=== PATIENT | male | born 1940 | race Caucasian/White ===

== ENCOUNTER 2017-03-09 12:48 | Emergency (ER) | payer BC ==
[2017-03-09] MEDS ORDERED: Lidocaine 1% w/Epinephrine 1:200K 30 ML VIAL ONE (14:29)
--- NOTE | 2017-03-09 15:43 | RAD ---
RADIOGRAPH LEFT LEG TIBIA AND FIBULA 2 VIEWS: Date: 03/09/17 HISTORY: 77-year-old male with painful, growing mass in left leg. COMPARISON: None. FINDINGS: On the frontal projection, there is an approximately 5.5 x 2.5 cm region of heterogeneously low dens ity, with mildly irregular, nonsclerotic margins, at the proximal tibial metadiaphysis. There is no periosteal elevation or fracture involving the tibia or fibula. No soft tissue radiopaque mass is id entified. There is advanced DJD at the knee. IMPRESSION: 1. Possible osteolytic lesion in the proximal tibia, raising the possibility of a metastatic lesion . Recommend further evaluation with nuclear medicine whole body bone scan, on an elective basis. 2. No radiopaque soft tissue mass is identified. 3. Advanced osteoarthrosis of the left knee. POS: [facility]
== END 2017-03-09 14:57 | disposition home or self-care (01) ==
LOC: ERS 12:48
DX: L72.9 Follicular cyst of the skin and subcutaneous tissue, unspecified (principal)
CPT/HCPCS: 10060

== ENCOUNTER 2017-03-13 08:17 | Outpatient (CLI) | payer BC ==
--- NOTE | 2017-03-13 10:53 | MRI ---
MRI LEFT LEG WITHOUT CONTRAST: HISTORY: Growing mass. COMPARISON: Multiple prior ultrasound examinations, most recent 11/27/16. FINDINGS: T2 hyperintense mass is present along the myotendinous junction of the popliteus extending into the muscle causing nearly complete muscle replacement. This mass measures 4.6 x 2.8 x almost 16 cm. No significant interval enhancement. There is a single focus of enhancement along the posterior perio steum of the tibia noted in the expected location of the insertion of the popliteus series 12 image 30. There is a cortical erosion in the posterior tibia at the expected muscle insertion which can b e from chronic interstitial pressure erosion. There is mass effect upon the popliteal artery and tibial nerve and some edema within the soleus mus tejinder and gastrocnemius which could be from denervation changes. There is bone infarct present of the tibia and proximal diaphysis as well as red marrow changes of t he distal femur. Severe osteoarthritic disease is present. IMPRESSION: 1. Large cystic structure nearly replacing the muscle of the popliteus, likely a large intramuscula r ganglion. There is cortical erosion posteriorly at the expected popliteus insertion likely from c hronic interstitial elevated pressure within this cyst with tracking of fluid through the cortex and chronic remodeling. Myxoma is within the differential. Given lack of enhancement, a mass such as sarcoma is felt less likely. Ultrasound-guided aspiration with cytology evaluation is recommended. 2. Bone infarct proximal tibia as well as severe tricompartment osteoarthritic disease. 3. Edema within the posterior muscle compartment of the lower extremity, likely denervation in natu re due to mass effect on the tibial nerve. POS: [facility]
[2017-03-13] MEDS ORDERED: Gadobenate Dimeglumine 529 MG/1 ML (20ML VIAL) ONE (15:15)
== END 2017-03-13 08:18 | disposition home or self-care (01) ==
LOC: MRI 08:17
PROVIDERS: ATTEND Orthopaedic Surgery
DX: R22.42 Localized swelling, mass and lump, left lower limb (principal); R60.0 Localized edema
CPT/HCPCS: A9579

== ENCOUNTER 2017-03-19 11:44 | Outpatient (CLI) | payer BC ==
[2017-03-19 12:54] LABS: #Eosinphils 0.1 thou/uL (0.0-0.7); #Monocytes 0.5 thou/uL (0.11-0.59); #Neutrophils 4.1 thou/uL (1.40-6.50); %Basophils 0.8 % (0.0-1.0); %Eosinophils 1.2 % (0.0-10.0); %Lymphocytes 17.9 % (21.0-51.0); %Monocytes 9.1 % (0.0-10.0); Hematocrit 48.5 % (42.0-52.0); Mean Platelet Volume 8.1 fL (7.4-10.4); Red Blood Cell (RBC) Count 4.97 mill/uL (4.70-6.10); White Blood Cell (WBC) Count 5.8 thou/uL (4.8-10.8)
[2017-03-19 13:10] LABS: Anion Gap 11 mmol/L (10-20); BUN (Urea Nitrogen) 16 mg/dL (8.4-25.7); Calc. Creatinine Clearance 0 mL/min (70-130); Calcium 9.9 mg/dL (7.8-10.44); Carbon Dioxide 28 mmol/L (23-31); Chloride 106 mmol/L (98-107); Estimated GFR-MDRD 69
== END 2017-03-19 11:45 | disposition home or self-care (01) ==
LOC: LABBT 11:44
PROVIDERS: ATTEND Orthopaedic Surgery
DX: Z01.818 Encounter for other preprocedural examination (principal); M67.40 Ganglion, unspecified site
CPT/HCPCS: 80048; 85025; 93005; 93010

== ENCOUNTER → 2017-03-21 | Day surgery (SDC) | payer BC ==
[2017-03-19 11:54] VITALS: BMI 24.3
[~2017-03-21] MED LIST: Bupivacaine HCl 0.5%/Epinephrine 1:200,000/PF 30 ml Vial ONE; Dexamethasone 20 MG/5 ML VIAL ONE; Fentanyl 100 MCG/2 ML VIAL ONE; Ketorolac Tromethamine 30 MG/ML VIAL ONE; Lidocaine 2% PF 10 ML AMP (For Epidural Use) ONE; Ondansetron HCl/PF 4 MG/2 ML Vial ONE; Propofol 200 MG/20 ML VIAL ONE
--- NOTE | 2017-03-21 13:41 | OP ---
DATE OF PROCEDURE: 03/21/2017 PREOPERATIVE DIAGNOSIS: Scott's cyst left leg. POSTOPERATIVE DIAGNOSIS: Scott's cyst left leg. PROCEDURE: Excision of Scott's cyst. SPECIMEN: Scott's cyst. SPECIMEN: None. DRAINS: None. COMPLICATIONS: None. PROCEDURE IN DETAIL: The patient was taken to the operating room where general anesthesia was induc ed. Left leg was prepped and draped in the usual sterile fashion. I made an incision posterior to the tibia. Dissection through subcutaneous tissue and fascia. I exposed the Scott's cyst and remov ed a large portion it. I did follow the cyst up to its entry point into the knee joint. Obviously there was some remaining cyst tissue left posteriorly. The wound was irrigated and drained. Fascia repaired with 0 Vicryl, subcu 2-0 Vicryl and the skin was closed with mariangel. Sterile dressings a pplied. There were no complications.
== END ==
LOC: SDC 07:07
PROVIDERS: ATTEND Orthopaedic Surgery
PROC: 0YBJ0ZZ Excision of Left Lower Leg, Open Approach (ICD-10-PCS; principal; 2017-03-21)
DX: M71.22 Synovial cyst of popliteal space [Baker], left knee (principal); M17.12 Unilateral primary osteoarthritis, left knee; E78.5 Hyperlipidemia, unspecified; J30.9 Allergic rhinitis, unspecified; Z79.82 Long term (current) use of aspirin; Z79.899 Other long term (current) drug therapy; Z90.49 Acquired absence of other specified parts of digestive tract; Z90.89 Acquired absence of other organs; Z98.890 Other specified postprocedural states; Z82.49 Family history of ischemic heart disease and other diseases of the circulatory system
CPT/HCPCS: 88304; J0670; J1100; J1885; J2001; J2405; J2704; J3010

== ENCOUNTER 2017-12-11 08:00 | Inpatient (IN) | payer BC, MEDICARE ==
[2017-12-11 08:34] VITALS: BMI 24.7
[2017-12-23] MEDS ORDERED: Sodium Chloride 0.9% 100 ML ONE (07:31)
[2017-12-23] MEDS ORDERED: CEFAZOLIN/Water 2 GM/20 ML SYRINGE ONE (07:32)
[2017-12-23] MEDS ORDERED: Midazolam HCl 2 mg/2 ml Vial ONE (08:14)
[2017-12-23] MEDS ORDERED: Fentanyl 100 MCG/2 ML VIAL ONE ×2 (08:14→11:47)
[2017-12-23] MEDS ORDERED: HYDROcodone/Acetaminophen 10/325 mg Tablet PO PRN ×2 (09:01)
[2017-12-23] MEDS ORDERED: Bupivacaine 0.5% 50 ML in Sodium Chloride 0.9% 50 ML NERVE BLCK SCH (09:01)
[2017-12-23] MEDS ORDERED: Zolpidem Tartrate 5 MG TAB PO PRN ×2 (09:01→09:13)
[2017-12-23] MEDS ORDERED: Ketorolac Tromethamine 30 MG/ML VIAL IVP PRN (09:01)
[2017-12-23] MEDS ORDERED: Promethazine HCl 25 MG/ML VIAL IM PRN ×3 (09:01→10:09)
[2017-12-23] MEDS ORDERED: Ondansetron HCl/PF 4 MG/2 ML Vial IVP PRN ×3 (09:01→10:09)
[2017-12-23] MEDS ORDERED: traMADol HCl 50 MG TAB PO PRN ×3 (09:01→09:13)
[2017-12-23] MEDS ORDERED: Fentanyl 100 MCG/2 ML VIAL IV PRN (09:02)
[2017-12-23] MEDS ORDERED: diphenhydrAMINE 25 MG CAP PO PRN (09:13)
[2017-12-23] MEDS ORDERED: Acetaminophen 325 MG TAB PO PRN (09:13)
[2017-12-23] MEDS ORDERED: Fentanyl 100 MCG/2 ML VIAL SLOW IVP PRN (09:13)
[2017-12-23] MEDS ORDERED: Promethazine HCl 25 MG/ML VIAL SLOW IVP PRN (10:09)
[2017-12-23] MEDS ORDERED: Bupivacaine 0.25% HCL 30 ML VIAL ONE (11:57)
[2017-12-23] MEDS ORDERED: Ropivacaine 0.5% HCl/PF (150 MG/30 ML VIAL) ONE (11:57)
[2017-12-23] MEDS ORDERED: Ketorolac Tromethamine 30 MG/ML VIAL ONE (11:58)
--- NOTE | 2017-12-23 12:23 | RAD ---
LEFT KNEE TWO VIEW SERIES: INDICATIONS: TKR left knee. Post procedural evaluation. FINDINGS: There is a left knee arthroplasty seen, without hardware complication. Expected post procedure findi ngs of the regional soft tissues. There is vascular calcification. IMPRESSION: Postoperative left knee without acute hardware complications. POS: [facility]
--- NOTE | 2017-12-23 12:32 | OP ---
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 POSTOPERATIVE DIAGNOSES: End-stage tricompartmental osteoarthritis and degenerative genu valgum, lef t knee. PROCEDURE: Cemented cruciate-sparing computer-assisted navigated left total knee arthroplasty; a nee dle decompression of a left leg cyst. SURGEON: Ruel Joshi M.D. MACHINE PAINT MIXER: Marc Vargas PA-C. ANESTHESIA: General via laryngeal mask airway augmented with indwelling adductor canal block and a s shana shot anterior sciatic block. TOURNIQUET TIME: 72 minutes at 300 mmHg. ESTIMATED BLOOD LOSS: 100 mL. FINDINGS: End-stage severe degenerative tricompartmental disease, bone on bone arthrosis, periarticu lar osteophyte formation, large serous effusion and a periarticular cyst. DRAINS: None. SPECIMENS: None. COMPLICATIONS: None. MEDICATIONS: None. COUNTS: Correct. INDICATIONS FOR SURGERY: Loyd is a 77-year-old white male who has had left knee pain amplified with standing and walking for the last 10-12 years. He has failed conservative management and elected to proceed with total knee arthroplasty as treatment of his pain. PROCEDURE IN DETAIL: After informed consent was obtained in the preoperative holding area. The mimi ent was taken to the operative suite where general anesthesia was induced. Once adequate level of ge neral anesthesia was obtained, the patient was positioned and a well-padded tourniquet was placed binu und the left proximal thigh. The left lower extremity was then prepped and draped in the usual steri le fashion. Prior to exsanguination, a time out was called and all members of the surgical team agre ed upon site, surgeon, and patient. The extremity was then exsanguinated and the tourniquet was rais ed. A midline longitudinal incision was then made directly over the patella extending two fingerbrea dths above the superior pole of the patella and two fingerbreadths inferior to the inferior patellar pole of the patella. Deeper subcutaneous layers were dissected sharply and local bleeding was contro lled with Bovie electrocautery. A quad tendon longitudinal split was then made sharply and a median parapatellar arthrotomy was carried out both sharp and with Bovie electrocautery, carried down to one fingerbreadth medial to the tibial tubercle. The knee was then placed into flexion and the patella was everted nicely, and a copious fat pad ectomy was performed allowing for greater exposure of the t ibia. The computer-assisted distal femoral fiducial was then placed and pinned firmly, and the dista l femoral cutting guide was pinned firmly into place. The oscillating saw was then used to remove th e appropriate amount of bone. The 4-in-1 cutting block was then placed on the distal femur and the o scillating saw was used to remove the appropriate amount of bone off of the anterior, posterior, and chamfer cuts. After completion of bone cuts, the anterior cruciate ligament was resected sharply and the posterior cruciate ligament retractor was placed and the tibia was subluxed for better exposure. Partial meniscectomies were carried out, and the tibial computer-assisted fiducial was pinned, and the cutting guide was placed. Oscillating saw was then used to remove the bone with Hohmann retracto rs used to take care and protect the collateral ligaments. After the tibial resection was performed, a laminar red cross worker was placed in between the freshened bone cuts. The knee placed at 90 degrees and further bilateral meniscectomies were carried out, and the curved osteotome and curettage was used t o remove any excess bone spurs in the posterior compartment. The trial femoral component, tibial bas eplate were placed with the appropriate polyethylene trial insert with an appropriate polyethylene sp acer and patellar button. The knee was taken through full range of motion with flexion and extension from 0-90 degrees and patellar broach squarely in the trochlea without any squinting or subluxation noted. The knee was also stable to varus and valgus stressing at 0, 15, 45, and 90 degrees of flexio n. The drawer was negative. All trial components were then removed and the keel punch was used to pr ovide the appropriate defect in the tibia with a mallet. The freshened bone cuts were copiously irri gated with pulsatile lavage of about 1-1/2 liters to remove all excess debris. The freshened bone cu ts were then dried and with suction and lap sponge. The knee was placed in flexion and retractors we re placed to provide access to all bone cuts. Tobramycin impregnated methyl methacrylate cement was then placed on the freshened bone cuts and implants which were malleted firmly into place. Curettage and [place] elevators were used to remove any excess bone cement. The knee was placed into full exten quang and the patellar button was placed under compression, and the cement was allowed to cure. Once completed, the components were again taken through full range of motion and copious irrigation of the knee was carried out with another liter of normal saline. All components were inspected fully with full range of motion and varus and valgus stressing. There was no laxity noted and full extension was observed clinically. Primary closure was accomplished with #2 interrupted Vicryl stitch of the arth rotomy defect. This was oversewn with a #2 running Quill barbed stitch. The subcutaneous layer was then closed with a running 0 barbed Monocryl stitch and skin closure accomplished with a running subc uticular 3-0 Monocryl barbed Quill stitch and augmented with cement on the skin. Tourniquet was lowe red. Good spontaneous return of distal pulses was noted clinically and a sterile dressing was applie d to the incision. The procedure was terminated without any complications. The patient was awakened in the operative suite and taken to the recovery room in stable condition.
[2017-12-23] MEDS ORDERED: Ondansetron HCl/PF 4 MG/2 ML Vial ONE (12:44)
[2017-12-23] MEDS ORDERED: Lidocaine 1% PF 5 ML VIAL ONE (12:44)
[2017-12-23] MEDS: Sodium Chloride 0.9% 1,000 ML IV SCH ×2 (13:11→21:50)
[2017-12-23] MEDS: Clindamycin/D5W 900 MG in Premix Bag 1 BAG IVPB SCH ×2 (13:17→16:11)
--- NOTE | 2017-12-23 13:40 | PDOC.PN ---
- Subjective Encounter Start Date: 12/23/17 Encounter Start Time: 13:39 -: old records requested/rev - Objective MAR Reviewed: Yes Vital Signs & Weight: Weight Weight 172 lb Phys Exam - Physical Examination Constitutional: NAD HEENT: PERRLA, moist MMs, sclera anicteric Neck: no JVD, supple Respiratory: no wheezing, no rales, no rhonchi Cardiovascular: RRR, no significant murmur, no rub Gastrointestinal: soft, non-tender, no distention, positive bowel sounds Musculoskeletal: no edema, pulses present left knee with dressing, nerve block+ Neurological: non-focal, normal sensation, moves all 4 limbs Psychiatric: normal affect, A&O x 3 Skin: no rash, normal turgor Dx/Plan (1) Status post total left knee replacement Code(s): Z96.652 - PRESENCE OF LEFT ARTIFICIAL KNEE JOINT Status: Acute (2) Dyslipidemia Code(s): E78.5 - HYPERLIPIDEMIA, UNSPECIFIED Status: Chronic (3) Osteoarthritis Code(s): M19.90 - UNSPECIFIED OSTEOARTHRITIS, UNSPECIFIED SITE Status: Chronic - Plan cont current plan of care, PT/OT * continue nerve block as per anesthesia * pain control with pain meds * continue PT/OT as per [facility] protocol treatment * selected home medication reconciled * lovenox for DVT prophylaxis * pepcid as needed for GI prophylaxis. * code status- Full code * medication reviewed as below * symptomatic treatment * will monitor medical problems.. Review of Systems - Review of Systems Eyes: negative: Pain, Vision Change, Conjunctivae Inflammation, Eyelid Inflammation, Redness, Other ENT: negative: Ear Pain, Ear Discharge, Nose Pain, Nose Discharge, Nose Congestion, Mouth Pain, Mouth Swelling, Throat Pain, Throat Swelling, Other Respiratory: negative: Cough, Dry, Shortness of Breath, Hemoptysis, SOB with Excertion, Pleuritic Pain, Sputum, Wheezing Cardiovascular: negative: chest pain, palpitations, orthopnea, paroxysmal nocturnal dyspnea, edema, light headedness, other Gastrointestinal: negative: Nausea, Vomiting, Abdominal Pain, Diarrhea, Constipation, Melena, Hematochezia, Other Genitourinary: negative: Dysuria, Frequency, Incontinence, Hematuria, Retention , Other Musculoskeletal: negative: Neck Pain, Shoulder Pain, Arm Pain, Back Pain, Hand Pain, Leg Pain, Foot Pain, Other Skin: negative: Rash, Lesions, Adonay, Bruising, Other - Medications/Allergies Allergies/Adverse Reactions: Allergies Allergy/AdvReac Type Severity Reaction Status Date / Time No Known Allergies Allergy Verified 12/11/17 08:34 Medications: Current Medications Acetaminophen (Tylenol) 650 mg PO Q4H PRN PRN Reason: CONDE/ T > 101F; Mild Pain (1-3) Hydrocodone Bitart/Acetaminophen ([place] 10/325) 1 tab PO Q4H PRN PRN Reason: Pain (1-3) Hydrocodone Bitart/Acetaminophen ([place] 10/325) 2 tab PO Q4H PRN PRN Reason: PAIN (4-6) Aspirin (Aspirin Chewable) 81 mg PO DAILY [facility] Atorvastatin Calcium (Lipitor) 20 mg PO HS [facility] Diphenhydramine HCl (Benadryl) 25 mg PO Q6H PRN PRN Reason: Itching Enoxaparin Sodium (Lovenox) 30 mg SC 0900 [facility] Fentanyl (Sublimaze) 50 mcg IV Q1H PRN PRN Reason: BREAKTHROUGH PAIN Ferrous Gluconate (Fergon) 324 mg PO BID-[facility] Bupivacaine HCl 50 ml/ Sodium (Chloride) 100 mls @ 0 mls/hr NERVE BLCK INF [place] PRN Reason: As Directed Clindamycin Phosphate/Dextrose (900 mg/ Device) 50 mls @ 100 mls/hr IVPB 0400, 1000,1600,2200 [facility] Stop: 12/23/17 16:29 Last Admin: 12/23/17 13:17 Dose: Not Given Sodium Chloride (Normal Saline 0.9%) 1,000 mls @ 100 mls/hr IV .Q10H [facility] Last Admin: 12/23/17 13:11 Dose: Not Given Iron/Minerals/Multivitamins (Theragran M) 1 tab PO DAILY [facility] Ketorolac Tromethamine (Toradol) 15 mg IVP Q6H PRN PRN Reason: Moderate Pain (4-6) Stop: 12/26/17 09:02 Ondansetron HCl (Zofran) 4 mg IVP Q6H PRN PRN Reason: Nausea/Vomiting Promethazine HCl (Phenergan) 12.5 mg IM Q4H PRN PRN Reason: Nausea/Vomiting Senna/Docusate Sodium (Senokot S) 2 tab PO BID [place] Sodium Chloride (Flush - Normal Saline) 10 ml IVF Q12HR [place] Sodium Chloride (Flush - Normal Saline) 10 ml IVF PRN PRN PRN Reason: Saline Flush Tramadol HCl (Ultram) 50 mg PO Q6H PRN PRN Reason: Mild Pain (1-3) Tramadol HCl (Ultram) 100 mg PO Q6H PRN PRN Reason: Moderate Pain 4-6 Zolpidem Tartrate (Ambien) 5 mg PO HSPRN PRN PRN Reason: Insomnia History of Present Illnes - History of Present Illness Reason for Visit: medical management History of Present Illness: admitted for left total knee replacement, has osteoarthritis, failed conservative management, was affecting quality of life and daily activities - Past Medical History Cardiac: Hyperlipidemia Musculoskeletal: Osteoarthritis - Past Surgical History Past Surgical History: Appendectomy, Total Knee Replacement - Past Family History Family History: None - Past Social History Smoke: No Alcohol: None Drugs: None Lives: With Family
[2017-12-23] MEDS ORDERED: hydrALAZINE 20 MG/ML VIAL SLOW IVP PRN (13:43)
[2017-12-23] MEDS ORDERED: Mag-Al 1200 mg/1200 mg/30 ML UDCUP PO PRN (13:43)
[2017-12-23] MEDS ORDERED: Chloraseptic Spray 180 ml Bottle PO PRN (13:43)
[2017-12-23] MEDS ORDERED: Eucerin (Mineral Oil/Petrolatum,White) 30 gm Jar TOP PRN (13:43)
[2017-12-23] MEDS ORDERED: Artificial Tears 18 DROP/0.9 ML EA EYE PRN (13:43)
[2017-12-23] MEDS ORDERED: Sodium Chloride 0.65% Nasal 44 ML BOT EA NARE PRN (13:43)
[2017-12-23] MEDS ORDERED: Bisacodyl 10 MG SUPP PR PRN (13:43)
[2017-12-23] MEDS ORDERED: Ondansetron ODT 4 MG TAB PO PRN (13:43)
[2017-12-23] MEDS ORDERED: Milk Of Magnesia 30 ML UDCUP PO PRN (13:43)
[2017-12-23] MEDS ORDERED: Diabetic Tussin 200 MG/10 ML UDCUP PO PRN (13:43)
[2017-12-23] MEDS ORDERED: Atorvastatin Calcium 20 MG TAB PO SCH (21:00)
[2017-12-23] MEDS: Famotidine 20 MG TAB PO SCH (21:50)
[2017-12-24] MEDS: Sodium Chloride 0.9% 1,000 ML IV SCH ×2 (04:15→14:32)
[2017-12-24 06:14] LABS: Hemoglobin 12.9 g/dL (14.0-18.0); Mean Corpuscular HGB CONC 34.4 g/dL (32.0-36.0); Mean Corpuscular Volume 93.2 fL (78.0-98.0); Mean Platelet Volume 8.3 fL (7.4-10.4); Platelet Count 147 thou/uL (130-400); RBC Distribution Width 11.9 % (11.5-14.5); Red Blood Cell (RBC) Count 4.03 mill/uL (4.70-6.10)
[2017-12-24] MEDS ORDERED: Ferrous Gluconate 324 MG TAB PO SCH (08:00)
[2017-12-24] MEDS ORDERED: Senokot S 8.6-50 MG TAB PO SCH (09:00)
[2017-12-24] MEDS ORDERED: Aspirin 81 mg Enteric Coated Tablet PO SCH (09:00)
[2017-12-24] MEDS ORDERED: Multivitamin W/ Minerals 1 TAB PO SCH (09:00)
[2017-12-24] MEDS ORDERED: Enoxaparin Sodium 30 MG/0.3 ML SYRINGE SC SCH (09:00)
[2017-12-24] MEDS: Famotidine 20 MG TAB PO SCH (09:42)
--- NOTE | 2017-12-24 10:14 | PDOC.PN ---
- Subjective Encounter Start Date: 12/24/17 Encounter Start Time: 08:10 -: old records requested/rev Patient seen and examined. No new complaints. No overnight events - Objective Resuscitation Status: Resuscitation Status FULL:Full Resuscitation MAR Reviewed: Yes Vital Signs & Weight: Vital Signs (12 hours) Temp Pulse Resp BP BP Pulse Ox 12/24/17 08:18 98.5 F 68 16 131/76 96 12/24/17 04:18 98.9 F 67 14 105/61 94 L 12/23/17 23:05 98.5 F 65 20 110/60 95 Weight Weight 172 lb I&O: 12/23/17 12/24/17 12/25/17 06:59 06:59 06:59 Intake Total 2430 Output Total 1650 Balance 780 Result Diagrams: 12/24/17 05:23 Phys Exam - Physical Examination Constitutional: NAD HEENT: PERRLA, moist MMs, sclera anicteric Neck: no JVD, supple Respiratory: no wheezing, no rales, no rhonchi Cardiovascular: RRR, no significant murmur, no rub Gastrointestinal: soft, non-tender, no distention, positive bowel sounds Musculoskeletal: no edema, pulses present left knee with dressing, nerve block + Neurological: non-focal, normal sensation, moves all 4 limbs Lymphatic: no nodes Psychiatric: normal affect, A&O x 3 Skin: no rash, normal turgor Dx/Plan (1) Status post total left knee replacement Code(s): Z96.652 - PRESENCE OF LEFT ARTIFICIAL KNEE JOINT Status: Acute (2) Dyslipidemia Code(s): E78.5 - HYPERLIPIDEMIA, UNSPECIFIED Status: Chronic (3) Osteoarthritis Code(s): M19.90 - UNSPECIFIED OSTEOARTHRITIS, UNSPECIFIED SITE Status: Chronic (4) H/O deep venous thrombosis Code(s): Z86.718 - PERSONAL HISTORY OF OTHER VENOUS THROMBOSIS AND EMBOLISM Status: Chronic - Plan cont current plan of care, PT/OT, addiction social worker * continue nerve block as per anesthesia * pain control with pain meds and lead cargoman * continue PT/OT as per [facility] protocol treatment * lovenox for DVT prophylaxis * protonix as needed for GI prophylaxis. * medication reviewed as below * symptomatic treatment * medical problems are stable * discharge per primary team . * possible discharge today Review of Systems - Review of Systems ENT: negative: Ear Pain, Ear Discharge, Nose Pain, Nose Discharge, Nose Congestion, Mouth Pain, Mouth Swelling, Throat Pain, Throat Swelling, Other Respiratory: negative: Cough, Dry, Shortness of Breath, Hemoptysis, SOB with Excertion, Pleuritic Pain, Sputum, Wheezing Cardiovascular: negative: chest pain, palpitations, orthopnea, paroxysmal nocturnal dyspnea, edema, light headedness, other Gastrointestinal: negative: Nausea, Vomiting, Abdominal Pain, Diarrhea, Constipation, Melena, Hematochezia, Other Genitourinary: negative: Dysuria, Frequency, Incontinence, Hematuria, Retention , Other Musculoskeletal: negative: Neck Pain, Shoulder Pain, Arm Pain, Back Pain, Hand Pain, Leg Pain, Foot Pain, Other Skin: negative: Rash, Lesions, Adonay, Bruising, Other - Medications/Allergies Allergies/Adverse Reactions: Allergies Allergy/AdvReac Type Severity Reaction Status Date / Time No Known Allergies Allergy Verified 12/11/17 08:34 Medications: Current Medications Acetaminophen (Tylenol) 650 mg PO Q4H PRN PRN Reason: CONDE/ T > 101F; Mild Pain (1-3) Hydrocodone Bitart/Acetaminophen ([place] 10/325) 1 tab PO Q4H PRN PRN Reason: Pain (1-3) Hydrocodone Bitart/Acetaminophen ([place] 10/325) 2 tab PO Q4H PRN PRN Reason: PAIN (4-6) Al Hydroxide/Mg Hydroxide (Maalox) 15 ml PO Q4H PRN PRN Reason: Heartburn or Indigestion Artificial Tears (Tears Naturale) 0 drop EA EYE PRN PRN PRN Reason: Dry Eyes Aspirin (Aspirin Chewable) 81 mg PO DAILY [facility] Aspirin (Ecotrin) 81 mg PO BID [facility] Atorvastatin Calcium (Lipitor) 20 mg PO HS [facility] Last Admin: 12/23/17 21:50 Dose: 20 mg Bisacodyl (Dulcolax) 10 mg NC DAILYPRN PRN PRN Reason: Constipation Diphenhydramine HCl (Benadryl) 25 mg PO Q6H PRN PRN Reason: Itching Enoxaparin Sodium (Lovenox) 30 mg SC 0900 [facility] Famotidine (Pepcid) 20 mg PO BID [facility] Last Admin: 12/23/17 21:50 Dose: 20 mg Fentanyl (Sublimaze) 50 mcg IV Q1H PRN PRN Reason: BREAKTHROUGH PAIN Ferrous Gluconate (Fergon) 324 mg PO BID-[facility] Guaifenesin (Robitussin Sf) 200 mg PO Q4H PRN PRN Reason: Cough Hydralazine HCl (Apresoline) 10 mg SLOW IVP Q4H PRN PRN Reason: Systolic BP > 180 Bupivacaine HCl 50 ml/ Sodium (Chloride) 100 mls @ 0 mls/hr NERVE BLCK INF [facility] PRN Reason: As Directed Last Admin: 12/24/17 00:09 Dose: 100 mls Sodium Chloride (Normal Saline 0.9%) 1,000 mls @ 100 mls/hr IV .Q10H [facility] Last Admin: 12/24/17 04:15 Dose: Not Given Iron/Minerals/Multivitamins (Theragran M) 1 tab PO DAILY [facility] Ketorolac Tromethamine (Toradol) 15 mg IVP Q6H PRN PRN Reason: Moderate Pain (4-6) Stop: 12/26/17 09:02 Magnesium Hydroxide (Milk Of Magnesium) 30 ml PO DAILYPRN PRN PRN Reason: Constipation Mineral Oil/White Petrolatum (Eucerin Cream) 0 gm TOP BIDPRN PRN PRN Reason: Dry Skin Ondansetron HCl (Zofran) 4 mg IVP Q6H PRN PRN Reason: Nausea/Vomiting Ondansetron HCl (Zofran Odt) 4 mg PO Q6H PRN PRN Reason: Nausea/Vomiting Phenol (Chloraseptic [place] 180 Ml Bot) 0 ml PO PRN PRN PRN Reason: Sore Throat Promethazine HCl (Phenergan) 12.5 mg IM Q4H PRN PRN Reason: Nausea/Vomiting Senna/Docusate Sodium (Senokot S) 2 tab PO BID [facility] Sodium Chloride (Flush - Normal Saline) 10 ml IVF Q12HR [facility] Last Admin: 12/23/17 21:50 Dose: 10 ml Sodium Chloride (Flush - Normal Saline) 10 ml IVF PRN PRN PRN Reason: Saline Flush Sodium Chloride ([place] Nasal [place] 0.65%) 0 ml EA NARE QIDPRN PRN PRN Reason: Nasal Congestion Tramadol HCl (Ultram) 50 mg PO Q6H PRN PRN Reason: Mild Pain (1-3) Tramadol HCl (Ultram) 100 mg PO Q6H PRN PRN Reason: Moderate Pain 4-6 Last Admin: 12/24/17 04:21 Dose: 100 mg Zolpidem Tartrate (Ambien) 5 mg PO HSPRN PRN PRN Reason: Insomnia
[2017-12-24] MEDS ORDERED: Ropivacaine 0.2% 550 ML 550 ML NERVE BLCK SCH (11:00)
[2017-12-24 11:24] VITALS: BP 115/58; TEMP 98.1
--- NOTE | 2017-12-24 11:41 | DIS ---
DATE OF ADMISSION: 12/23/2017 DATE OF DISCHARGE: 12/24/2017 PRIMARY CARE PHYSICIAN: Sudeep Pickard M.D. DISCHARGE DISPOSITION: Home. PRIMARY DISCHARGE DIAGNOSIS: Status post left total knee replacement. SECONDARY DISCHARGE DIAGNOSES: Osteoarthritis, dyslipidemia, history of deep venous thrombosis. PRIMARY PROCEDURE/OPERATION: Left total knee replacement. RADIOLOGICAL INVESTIGATION: Knee x-ray. SIGNIFICANT LABORATORY DATA: Hemoglobin of 12.9. DISCHARGE MEDICATIONS: Aspirin 81 mg p.o. b.i.d., Lipitor 20 mg p.o. at bedtime, [place] 10 one or two tablets q.4 hourly p.r.n. for pain. CONTRAINDICATIONS: None. CODE STATUS: FULL CODE. INPATIENT CONSULTANTS: Dr. Joshi was primary while in hospital. Sound Team was consulted for medic al co-management. TEST RESULTS PENDING ON DISCHARGE: None. ALLERGIES: No known drug allergy. DISCHARGE PLAN: Post hospital, the patient will follow up with Dr. Joshi on 01/12/2018 at 08:45 a.m . Patient will follow up with primary care physician in 1 week. HOSPITAL COURSE: A 77-year-old male with above-mentioned medical problem, who was admitted by Dr. Carolina hartley for left total knee replacement, which was done yesterday without any complication. Postoperati vely, the patient did very well. His pain was well controlled with pain medication. He did very wel l, as per [facility] protocol treatment. Patient medical problem remained stable. He is plann ed for discharge later on today. The patient is seen and examined at bedside today. Please see my p idalia note from today for further detail. The patient is medically stable for discharge today.
== END 2017-12-24 17:47 | disposition home or self-care (01) | DRG 470 ==
LOC: SJJU 12-23 06:26
PROVIDERS: ADMIT Orthopaedic Surgery; ATTEND Orthopaedic Surgery
PROC: 0SRD0J9 Replacement of Left Knee Joint with Synthetic Substitute, Cemented, Open Approach (ICD-10-PCS; principal; 2017-12-23)
PROC: 3E0T3BZ Introduction of Anesthetic Agent into Peripheral Nerves and Plexi, Percutaneous Approach (ICD-10-PCS; 2017-12-23)
DX: M17.12 Unilateral primary osteoarthritis, left knee (principal); M25.762 Osteophyte, left knee; M21.062 Valgus deformity, not elsewhere classified, left knee; E78.5 Hyperlipidemia, unspecified; Z79.899 Other long term (current) drug therapy; Z79.891 Long term (current) use of opiate analgesic; Z90.49 Acquired absence of other specified parts of digestive tract; Z86.718 Personal history of other venous thrombosis and embolism
CPT/HCPCS: 36415; 85027; A4216; A4306; C1713; C1776; G8978-GP-CJ; G8979-GP-CI; J1650; J1885; J2001; J2250; J2405; J2795; J3010; J3370; J3490; J7050; S0020

== ENCOUNTER 2017-12-11 08:24 | Outpatient (CLI) | payer BC, MEDICARE ==
--- NOTE | 2017-12-11 09:15 | RAD ---
PA AND LATERAL CHEST: History: Pre-operative evaluation. FINDINGS: The heart size is normal. The lungs are expanded without focal areas of consolidation, pneumothoraces , or pleural effusions. There are degenerative changes of the spine. IMPRESSION: No radiographic evidence of acute cardiopulmonary process. POS: [facility]
[2017-12-11 09:36] LABS: Bilirubin Negative (Negative); Blood, Urine Trace (Negative); Clarity CLEAR (Clear); Glucose, Urine (Dipstick) Negative (Negative); Leukocyte Negative (Negative); Nitrite Negative (Negative); Protein, Urine (Dipstick) Negative (Neg-Trace); Urobilinogen 0.2 mg/dL (0.2-1.0); pH, Urine 5.5 (5.0-9.0)
[2017-12-11 09:38] LABS: Bacteria/HPF None Seen HPF (None Seen); Hyaline Casts/LPF 0-3 HYALINE CAST LPF (0-3 Hyaline); RBC/HPF 0-3 HPF (0-3); Squamous Epithelial None Seen HPF (0-3); WBC/HPF 0-3 HPF (0-3)
== END 2017-12-11 08:25 | disposition home or self-care (01) ==
LOC: LABBT 08:24
PROVIDERS: ATTEND Orthopaedic Surgery
DX: Z01.818 Encounter for other preprocedural examination (principal); M17.12 Unilateral primary osteoarthritis, left knee
CPT/HCPCS: 71046; 81001; 87081; 93005; 93010

== ENCOUNTER 2017-12-22 08:28 | Outpatient (CLI) | payer BC ==
[2017-12-22 09:27] LABS: #Basophils 0.1 thou/uL (0.0-0.2); #Eosinphils 0.1 thou/uL (0.0-0.7); #Lymphocytes 1.3 thou/uL (1.20-3.40); #Monocytes 0.5 thou/uL (0.11-0.59); #Neutrophils 3.4 thou/uL (1.40-6.50); %Lymphocytes 24.2 % (21.0-51.0); %Monocytes 8.6 % (0.0-10.0); %Neutrophils 64.2 % (42.0-75.0); Hemoglobin 15.2 g/dL (14.0-18.0); Mean Corpuscular HGB CONC 33.2 g/dL (32.0-36.0); Mean Corpuscular Hemoglobin 31.3 pg (27.0-31.0); Mean Corpuscular Volume 94.3 fL (78.0-98.0); Mean Platelet Volume 8.7 fL (7.4-10.4); Platelet Count 169 thou/uL (130-400); Red Blood Cell (RBC) Count 4.87 mill/uL (4.70-6.10); White Blood Cell (WBC) Count 5.3 thou/uL (4.8-10.8)
[2017-12-22 09:29] LABS: Prothrombin Time 13.1 SEC (12.0-14.7)
[2017-12-22 09:46] LABS: Anion Gap 14 mmol/L (10-20); BUN (Urea Nitrogen) 25 mg/dL (8.4-25.7); Calc. Creatinine Clearance 0 mL/min (70-130); Calcium 9.1 mg/dL (7.8-10.44); Carbon Dioxide 22 mmol/L (23-31); Chloride 107 mmol/L (98-107); Estimated GFR-MDRD 79; Glucose 102 mg/dL (83-110); Sodium 139 mmol/L (136-145)
== END 2017-12-22 08:29 | disposition home or self-care (01) ==
LOC: LABBT 08:28
PROVIDERS: ATTEND Orthopaedic Surgery
DX: Z01.818 Encounter for other preprocedural examination (principal); M17.12 Unilateral primary osteoarthritis, left knee
CPT/HCPCS: 80048; 85025; 85610; 86850; 86900; 86901

== ENCOUNTER 2020-10-30 08:52 | Outpatient (CLI) | payer BC | END 2020-10-30 08:53 | disposition home or self-care (01) | LOC: SCSMRI 08:52 | PROVIDERS: ATTEND Orthopaedic Surgery | DX: M48.061 Spinal stenosis, lumbar region without neurogenic claudication (principal); M47.816 Spondylosis without myelopathy or radiculopathy, lumbar region; M51.36 Other intervertebral disc degeneration, lumbar region; R93.7 Abnormal findings on diagnostic imaging of other parts of musculoskeletal system | CPT/HCPCS: 72148 ==

== ENCOUNTER 2023-12-01 12:25 | Outpatient (CLI) | payer BC ==
[2023-12-01 13:31] LABS: #Basophils 0.04 10x3/uL (0.0-0.2); #Eosinphils 0.08 10x3/uL (0.0-0.5); #Monocytes 0.37 10x3/uL (0.0-1.1); #Neutrophils 4.67 10x3/uL (1.5-8.4); %Basophils 0.7 % (0.0-2.0); %Eosinophils 1.3 % (0.0-6.0); %Lymphocytes 15.5 % (18.0-47.0); %Neutrophils 76.2 % (40.0-75.0); Hematocrit 42.2 % (38.8-50.0); Hemoglobin 14.5 g/dL (13.5-17.5); Mean Corpuscular HGB CONC 34.4 g/dL (32.0-36.0); Mean Corpuscular Volume 93.2 fL (81.2-95.1); Mean Platelet Volume 11.4 fL (7.4-10.4); Platelet Count 177 10x3/uL (150-450); RBC Distribution Width 12.6 % (11.5-14.5); Red Blood Cell (RBC) Count 4.53 10x6/uL (4.32-5.72); White Blood Cell (WBC) Count 6.1 10x3/uL (3.5-10.5)
[2023-12-01 13:58] LABS: ALT (SGPT) 29 U/L (8-55); AST (SGOT) 25 U/L (5-34); Alkaline Phosphatase 71 U/L (40-110); Anion Gap 12 mmol/L (10-20); BUN (Urea Nitrogen) 25 mg/dL (8.4-25.7); Bilirubin, Direct 0.3 mg/dL (0.1-0.3); Bilirubin, Total 0.6 mg/dL (0.2-1.2); Calc. Creatinine Clearance 0 mL/min (70-130); Carbon Dioxide 24 mmol/L (23-31); Chloride 108 mmol/L (98-107); Estimated GFR 67; Globulin 2.5 g/dL (2.4-3.5); Glucose 133 mg/dL (83-110); Potassium 4.4 mmol/L (3.5-5.1); Protein, Total 6.5 g/dL (5.8-8.1); Sodium 140 mmol/L (136-145)
== END 2023-12-01 12:26 | disposition home or self-care (01) ==
LOC: LABBT 12:25
PROVIDERS: ATTEND Internal Medicine Cardiovascular Disease
DX: Z01.812 Encounter for preprocedural laboratory examination (principal)
CPT/HCPCS: 80053; 80076; 85025

== ENCOUNTER 2023-12-05 09:26 | Day surgery (SDC) | payer BC ==
[2023-12-01 12:51] VITALS: BMI 24.7
[2023-12-05] MEDS ORDERED: Iopamidol 370 76% 100 ML VIAL ONE (09:48)
[2023-12-05] MEDS ORDERED: Verapamil 5 MG/2 ML VIAL ONE (11:40)
[2023-12-05] MEDS ORDERED: Heparin 10,000 UNITS/ 10 ML VIAL ONE (11:40)
[2023-12-05] MEDS ORDERED: Midazolam HCl 2 mg/2 ml Vial ONE (11:40)
[2023-12-05] MEDS ORDERED: fentaNYL 50 mcg/mL 1 mL Vial ONE (11:40)
[2023-12-05] MEDS ORDERED: Lidocaine 1% (PF) 30 ML VIAL ONE (11:40)
[2023-12-05] MEDS ORDERED: Nitroglycerin 50 MG/250 ML BOT 250 ML ONE (11:40)
[2023-12-05 11:53] LABS: Cardiac Risk 3.9 (Less than 4.5)
[2023-12-05] MEDS ORDERED: Adenosine 90 mg (30 mL) VIAL ONE (12:47)
[2023-12-05] MEDS ORDERED: Atropine Sulfate 1 mg/10 ml Syringe ONE (13:00)
[2023-12-05] MEDS ORDERED: TICAGRELOR 90 MG TABLET ONE ×2 (13:08)
== END 2023-12-05 16:47 | disposition home or self-care (01) ==
LOC: SDC 09:26
PROVIDERS: ATTEND Internal Medicine Cardiovascular Disease
PROC: 4A023N7 Measurement of Cardiac Sampling and Pressure, Left Heart, Percutaneous Approach (ICD-10-PCS; principal; 2023-12-05)
DX: I25.10 Atherosclerotic heart disease of native coronary artery without angina pectoris (principal); R94.39 Abnormal result of other cardiovascular function study; I10 Essential (primary) hypertension; E78.5 Hyperlipidemia, unspecified; I45.10 Unspecified right bundle-branch block; Z96.659 Presence of unspecified artificial knee joint; Z90.89 Acquired absence of other organs; Z90.49 Acquired absence of other specified parts of digestive tract; Z79.82 Long term (current) use of aspirin; Z79.899 Other long term (current) drug therapy
CPT/HCPCS: 80061; 85347; 92928; 93005; 93454; 93458; 99152; 99153; C1725; C1760; C1769; C1874; C1887; C9600; J0153; J0461; J1644; J2001; J2250; J3010; Q9967

== ENCOUNTER 2025-01-13 11:20 | Inpatient (IN) | payer BC, MEDICARE ==
[2025-01-13 12:02] LABS: #Basophils Less than 0.03 10x3/uL (0.0-0.2); #Eosinophils Less than 0.03 10x3/uL (0.0-0.7); #Monocytes 0.47 10x3/uL (0.11-0.59); #Neutrophils 7.74 10x3/uL (1.40-6.50); %Basophils 0.2 % (0.0-1.0); %Eosinophils 0.1 % (0.0-10.0); %Lymphocytes 7.7 % (21.0-51.0); %Monocytes 5.2 % (0.0-10.0); %Neutrophils 86.5 % (42.0-75.0); Hematocrit 40.3 % (42.0-52.0); Hemoglobin 13.4 g/dL (14.0-18.0); Mean Corpuscular Hemoglobin 31.2 pg (27.0-31.0); Mean Corpuscular Volume 93.9 fL (78.0-98.0); Platelet Count 152 10x3/uL (130-400); Red Blood Cell (RBC) Count 4.29 mill/uL (4.70-6.10); White Blood Cell (WBC) Count 8.96 10x3/uL (4.8-10.8)
[2025-01-13 12:31] LABS: ALT (SGPT) 53 U/L (Less than 45); AST (SGOT) 36 U/L (11-34); Albumin 4.2 g/dL (3.1-4.5); Alkaline Phosphatase 68 U/L (40-110); Anion Gap 14 mmol/L (10-20); BUN (Urea Nitrogen) 42 mg/dL (8.4-25.7); Bilirubin, Total 1.0 mg/dL (0.3-1.2); Calc. Creatinine Clearance 0 mL/min (70-130); Calcium 8.8 mg/dL (7.8-10.44); Carbon Dioxide 20 mmol/L (23-31); Chloride 107 mmol/L (98-107); Globulin 2.5 g/dL (2.4-3.5); Glucose 124 mg/dL (83-110); Magnesium 2.2 mg/dL (1.6-2.6); Potassium 4.2 mmol/L (3.5-5.1); Sodium 137 mmol/L (136-145); Troponin I 0.083 ng/mL (< 0.028)
[2025-01-13] MEDS ORDERED: Aspirin Chewable 81 MG TAB ONE (12:56)
[2025-01-13] MEDS ORDERED: Senokot S 8.6-50 MG TAB PO PRN (13:25)
[2025-01-13] MEDS ORDERED: Acetaminophen 325 MG TAB PO PRN (13:25)
[2025-01-13] MEDS ORDERED: Electrolyte Replacement Protocol 1 EACH FS PRN (13:30)
[2025-01-13 15:28] VITALS: BMI 24.7
[2025-01-13] MEDS: Enoxaparin 80 MG (0.8 mL) SYRINGE SC SCH (17:27)
[2025-01-13 19:28] LABS: Troponin I 0.089 ng/mL (< 0.028)
[2025-01-13] MEDS: Amiodarone 150 MG, Admixture Fee 1 EACH in Dextrose 5% in Water 100 ML IVPB SCH (21:02)
[2025-01-14 04:56] LABS: #Basophils Less than 0.03 10x3/uL (0.0-0.2); #Eosinophils 0.08 10x3/uL (0.0-0.7); #Monocytes 0.50 10x3/uL (0.11-0.59); #Neutrophils 5.03 10x3/uL (1.40-6.50); %Basophils 0.3 % (0.0-1.0); %Eosinophils 1.2 % (0.0-10.0); %Lymphocytes 15.4 % (21.0-51.0); %Monocytes 7.5 % (0.0-10.0); %Neutrophils 75.0 % (42.0-75.0); Hematocrit 37.9 % (42.0-52.0); Hemoglobin 12.5 g/dL (14.0-18.0); Mean Corpuscular Hemoglobin 32.1 pg (27.0-31.0); Mean Corpuscular Volume 97.4 fL (78.0-98.0); Platelet Count 136 10x3/uL (130-400); Red Blood Cell (RBC) Count 3.89 mill/uL (4.70-6.10); White Blood Cell (WBC) Count 6.70 10x3/uL (4.8-10.8)
[2025-01-14 05:12] LABS: ALT (SGPT) 47 U/L (Less than 45); AST (SGOT) 30 U/L (11-34); Albumin 3.7 g/dL (3.1-4.5); Alkaline Phosphatase 59 U/L (40-110); Anion Gap 11 mmol/L (10-20); BUN (Urea Nitrogen) 39 mg/dL (8.4-25.7); Bilirubin, Total 1.3 mg/dL (0.3-1.2); Calc. Creatinine Clearance 53 mL/min (70-130); Calcium 8.3 mg/dL (7.8-10.44); Carbon Dioxide 22 mmol/L (23-31); Chloride 108 mmol/L (98-107); Globulin 2.2 g/dL (2.4-3.5); Glucose 93 mg/dL (83-110); Potassium 4.0 mmol/L (3.5-5.1); Sodium 137 mmol/L (136-145)
[2025-01-14] MEDS ORDERED: Enoxaparin 80 MG (0.8 mL) SYRINGE SC SCH (06:00)
[2025-01-14] MEDS ORDERED: PROPOFOL 20 ML ONE ×2 (06:50→08:47)
[2025-01-14] MEDS ORDERED: Etomidate 40 MG (20 mL) VIAL ONE (06:51)
[2025-01-14] MEDS ORDERED: Lidocaine 1% (PF) 30 ML VIAL ONE (08:47)
[2025-01-14] MEDS ORDERED: GLYCOPYRROLATE/PF 0.2 MG/ML VIAL ONE (08:47)
[2025-01-14] MEDS ORDERED: PHENYLEPHRINE-NS 100 MCG/ML 10 ML SYRINGE ONE (09:28)
[2025-01-14] MEDS: Aspirin 81 mg Enteric Coated Tablet PO SCH (11:52)
[2025-01-14] MEDS: Apixaban 5 MG TAB PO SCH (11:52)
[2025-01-14] MEDS: Metoprolol Succinate XL 25 MG ER.TAB PO SCH (11:53)
[2025-01-14] MEDS: Ondansetron PF 4 MG/2 ML Vial IVP PRN (18:20)
[2025-01-14] MEDS: Amiodarone 200 MG TAB PO SCH (21:11)
[2025-01-14] MEDS: Melatonin 3 MG TAB PO PRN (21:13)
[2025-01-15 11:56] VITALS: TEMP 97.7
[2025-01-15 15:37] VITALS: BP 132/79
[2025-01-15] MEDS ORDERED: Sacubitril 24MG/Valsartan 26 MG TAB PO SCH (21:00)
== END 2025-01-15 17:15 | disposition home or self-care (01) | DRG 282 ==
LOC: ERS 11:20 → INTOOBSV 15:01 → 2NO 15:01 → OBSVTOIN 01-15 10:08
PROVIDERS: ADMIT Internal Medicine; ATTEND Internal Medicine
PROC: 5A2204Z Restoration of Cardiac Rhythm, Single (ICD-10-PCS; principal; 2025-01-15)
DX: I48.0 Paroxysmal atrial fibrillation (principal); I21.A1 Myocardial infarction type 2; Z79.01 Long term (current) use of anticoagulants; I25.10 Atherosclerotic heart disease of native coronary artery without angina pectoris; I48.92 Unspecified atrial flutter; I10 Essential (primary) hypertension; E78.5 Hyperlipidemia, unspecified; I42.0 Dilated cardiomyopathy; Z79.82 Long term (current) use of aspirin; Z79.899 Other long term (current) drug therapy; Z95.5 Presence of coronary angioplasty implant and graft
CPT/HCPCS: 36415; 71045; 80053; 83605; 83735; 83880; 84443; 84484; 85025; 92960; 93005; 93010; 93306; 93312; 96360; 96361; 96374; 96376; G0378; J0282; J1650; J2405; J2704; J3490; J7070

== ENCOUNTER 2025-04-14 07:58 | Outpatient (CLI) | payer BC ==
[2025-04-14 08:54] LABS: #Basophils 0.04 10x3/uL (0.0-0.2); #Eosinophils 0.14 10x3/uL (0.0-0.7); #Monocytes 0.32 10x3/uL (0.11-0.59); #Neutrophils 4.77 10x3/uL (1.40-6.50); %Basophils 0.7 % (0.0-1.0); %Eosinophils 2.4 % (0.0-10.0); %Lymphocytes 10.6 % (21.0-51.0); %Monocytes 5.4 % (0.0-10.0); %Neutrophils 80.6 % (42.0-75.0); Hematocrit 40.7 % (42.0-52.0); Hemoglobin 12.9 g/dL (14.0-18.0); Mean Corpuscular Hemoglobin 31.0 pg (27.0-31.0); Mean Corpuscular Volume 97.8 fL (78.0-98.0); Platelet Count 183 10x3/uL (130-400); Red Blood Cell (RBC) Count 4.16 mill/uL (4.70-6.10); White Blood Cell (WBC) Count 5.92 10x3/uL (4.8-10.8)
[2025-04-14 09:28] LABS: ALT (SGPT) 25 U/L (Less than 45); AST (SGOT) 25 U/L (11-34); Albumin 3.8 g/dL (3.1-4.5); Alkaline Phosphatase 80 U/L (40-110); Anion Gap 10 mmol/L (10-20); BUN (Urea Nitrogen) 31 mg/dL (8.4-25.7); Bilirubin, Total 0.8 mg/dL (0.3-1.2); Calc. Creatinine Clearance 0 mL/min (70-130); Calcium 8.7 mg/dL (7.8-10.44); Carbon Dioxide 25 mmol/L (23-31); Chloride 109 mmol/L (98-107); Globulin 2.6 g/dL (2.4-3.5); Glucose 138 mg/dL (83-110); Potassium 4.1 mmol/L (3.5-5.1); Sodium 140 mmol/L (136-145)
[2025-04-14 09:32] LABS: INR-International Normal Ratio 1.7; Prothrombin Time 19.9 sec (12.0-14.7)
[2025-04-14 09:33] LABS: PTT 42.9 sec (22.9-36.1)
[2025-04-15 05:14] LABS: Myoglobin, Serum 44 ng/mL (28-72)
== END 2025-04-14 07:59 | disposition home or self-care (01) ==
LOC: LABBT 07:58
PROVIDERS: ATTEND Internal Medicine Cardiovascular Disease
DX: Z01.818 Encounter for other preprocedural examination (principal); I48.19 Other persistent atrial fibrillation
CPT/HCPCS: 80053; 83010; 83051; 83874; 85025; 85610; 85730; 86850; 86900; 86901; 93005; 93010

== ENCOUNTER 2025-04-19 06:14 | Day surgery (SDC) | payer BC ==
[2025-04-14 08:21] VITALS: BMI 24.3
[2025-04-14 08:54] LABS: #Basophils 0.04 10x3/uL (0.0-0.2); #Eosinophils 0.14 10x3/uL (0.0-0.7); #Monocytes 0.32 10x3/uL (0.11-0.59); #Neutrophils 4.77 10x3/uL (1.40-6.50); %Basophils 0.7 % (0.0-1.0); %Eosinophils 2.4 % (0.0-10.0); %Lymphocytes 10.6 % (21.0-51.0); %Monocytes 5.4 % (0.0-10.0); %Neutrophils 80.6 % (42.0-75.0); Hematocrit 40.7 % (42.0-52.0); Hemoglobin 12.9 g/dL (14.0-18.0); Mean Corpuscular Hemoglobin 31.0 pg (27.0-31.0); Mean Corpuscular Volume 97.8 fL (78.0-98.0); Platelet Count 183 10x3/uL (130-400); Red Blood Cell (RBC) Count 4.16 mill/uL (4.70-6.10); White Blood Cell (WBC) Count 5.92 10x3/uL (4.8-10.8)
[2025-04-14 09:28] LABS: ALT (SGPT) 25 U/L (Less than 45); AST (SGOT) 25 U/L (11-34); Albumin 3.8 g/dL (3.1-4.5); Alkaline Phosphatase 80 U/L (40-110); Anion Gap 10 mmol/L (10-20); BUN (Urea Nitrogen) 31 mg/dL (8.4-25.7); Bilirubin, Total 0.8 mg/dL (0.3-1.2); Calc. Creatinine Clearance 0 mL/min (70-130); Calcium 8.7 mg/dL (7.8-10.44); Carbon Dioxide 25 mmol/L (23-31); Chloride 109 mmol/L (98-107); Globulin 2.6 g/dL (2.4-3.5); Glucose 138 mg/dL (83-110); Potassium 4.1 mmol/L (3.5-5.1); Sodium 140 mmol/L (136-145)
[2025-04-14 09:32] LABS: INR-International Normal Ratio 1.7; Prothrombin Time 19.9 sec (12.0-14.7)
[2025-04-14 09:33] LABS: PTT 42.9 sec (22.9-36.1)
[2025-04-15 05:14] LABS: Myoglobin, Serum 44.0 ng/mL (28-72)
[2025-04-18 12:14] LABS: Hemoglobin,Free - Plasma 5.3 mg/dL (0.0-4.9)
[2025-04-19] MEDS ORDERED: Heparin 10,000 UNITS/ 10 ML VIAL ONE (06:47)
[2025-04-19] MEDS ORDERED: Isoproterenol 0.2 MG/1 ML AMP ONE (06:48)
[2025-04-19] MEDS ORDERED: Etomidate 40 MG (20 mL) VIAL ONE (07:04)
[2025-04-19] MEDS ORDERED: Rocuronium Bromide 10 MG/ML (10ML VIAL) ONE (07:04)
[2025-04-19] MEDS ORDERED: Lidocaine 1% (PF) 30 ML VIAL ONE (07:05)
[2025-04-19] MEDS ORDERED: Glycopyrrolate 0.2 MG/ML 5 ML SYRINGE ONE (08:07)
[2025-04-19] MEDS ORDERED: PHENYLEPHRINE-NS 100 MCG/ML 10 ML SYRINGE ONE (08:07)
[2025-04-19] MEDS ORDERED: Nitroglycerin 50 MG/250 ML BOT 250 ML ONE (09:55)
[2025-04-19] MEDS ORDERED: SUGAMMADEX SODIUM 200 MG/2 ML VIAL ONE (10:23)
== END 2025-04-19 14:35 | disposition home or self-care (01) ==
LOC: SDC 06:14
PROVIDERS: ATTEND Internal Medicine Cardiovascular Disease
PROC: 02583ZZ Destruction of Conduction Mechanism, Percutaneous Approach (ICD-10-PCS; principal; 2025-04-19)
PROC: 4A023FZ Measurement of Cardiac Rhythm, Percutaneous Approach (ICD-10-PCS; principal; 2025-04-19)
DX: I48.19 Other persistent atrial fibrillation (principal); I25.10 Atherosclerotic heart disease of native coronary artery without angina pectoris; I11.0 Hypertensive heart disease with heart failure; I50.32 Chronic diastolic (congestive) heart failure; I42.9 Cardiomyopathy, unspecified; E78.5 Hyperlipidemia, unspecified; Z90.49 Acquired absence of other specified parts of digestive tract; Z79.82 Long term (current) use of aspirin; Z79.899 Other long term (current) drug therapy
CPT/HCPCS: 80053; 83010; 83051; 83874; 85025; 85347; 85610; 85730; 86850; 86900; 86901; 93005; 93623; 93655; 93656; 93657; C1730; C1733; C1759; C1760; C1766; C1769; C1893; C1894; J1100; J1644; J2003; J2720; J3010